=== PATIENT | male | born 1935 ===

== ENCOUNTER 2018-01-22 10:30 | Inpatient (IN) | payer OTHER ==
[~2018-01-22] VITALS: Ht 152.4 cm; Wt 78.0 kg
[2018-01-22] MEDS ORDERED: CARDIZEM30 MG PO (13:19)
[2018-01-22] MEDS ORDERED: SYNTHROID50 MCG PO (13:20)
[2018-01-22] MEDS ORDERED: VALSARTAN-HCTZ1 EAC3 PO (13:20)
[2018-01-22] MEDS ORDERED: TRAMADOL HCL50 MG PO (13:21)
[2018-01-22] MEDS ORDERED: [UNRECOGNIZED DRUG - OTHER] (13:22)
[2018-01-22] MEDS ORDERED: [UNRECOGNIZED DRUG - OTHER] (13:24)
[2018-01-22] MEDS ORDERED: PEPCID40 MG PO (13:25)
[2018-01-22] MEDS ORDERED: ASA81 MG PO (13:25)
[2018-01-31] MEDS ORDERED: GABAPENTIN800 MG PO (13:35)
[2018-01-31] MEDS ORDERED: DOCUSATE SODIU100 MG PO (13:35)
[2018-01-31] MEDS ORDERED: AMOX-CLAV 875-1 EACH PO (13:35)
[2018-01-31] MEDS ORDERED: PERCOCET 5-3251 EACH PO (13:35)
[2018-01-31] MEDS ORDERED: CLONAZEPAM1 M1 PO (13:35)
[2018-01-31] MEDS ORDERED: ENSURE ORIGINA237 ML PO (13:36)
== END 2018-02-01 15:49 | DRG 455 ==
LOC: PED 01-31 04:45 → O/R 01-31 04:45 → SURH 01-31 10:30 → PED 01-31 14:04
PROVIDERS: Orthopaedic Surgery Orthopaedic Surgery of the Spine
PROC: 0SG1071 Fusion of 2 or more Lumbar Vertebral Joints with Autologous Tissue Substitute, Posterior Approach, Posterior Column, Open Approach (ICD-10-PCS; 2018-01-31)
PROC: 0ST20ZZ Resection of Lumbar Vertebral Disc, Open Approach (ICD-10-PCS; 2018-01-31)
PROC: 0SG10AJ Fusion of 2 or more Lumbar Vertebral Joints with Interbody Fusion Device, Posterior Approach, Anterior Column, Open Approach (ICD-10-PCS; 2018-01-31)
PROC: 07DS3ZZ Extraction of Vertebral Bone Marrow, Percutaneous Approach (ICD-10-PCS; 2018-01-31)
PROC: 0SG10A0 Fusion of 2 or more Lumbar Vertebral Joints with Interbody Fusion Device, Anterior Approach, Anterior Column, Open Approach (ICD-10-PCS; principal; 2018-01-31 13:00)
DX: M47.26 Other spondylosis with radiculopathy, lumbar region (principal); M48.061 Spinal stenosis, lumbar region without neurogenic claudication; M51.16 Intervertebral disc disorders with radiculopathy, lumbar region; E03.8 Other specified hypothyroidism; I10 Essential (primary) hypertension